=== PATIENT | female | born 2000 | race African-American/Black ===

== ENCOUNTER 2025-02-25 11:23 | Emergency (ER) | payer MEDICAID ==
[~2025-02-25] VITALS: Ht 160 cm; Wt 113.3 kg
[2025-02-25 11:26] VITALS: O2SAT 100
[2025-02-25 11:27] VITALS: BP 150/89; PULSE 71; RESP 16; TEMP 36.7; O2SAT 99
== END 2025-02-25 12:03 | disposition home or self-care (01) ==
LOC: ER 11:43
DX: M79.672 Pain in left foot (principal); M79.671 Pain in right foot
CPT/HCPCS: 99281

== ENCOUNTER 2025-04-23 22:20 | Emergency (ER) | payer MEDICAID ==
[~2025-04-23] VITALS: Ht 160 cm; Wt 114.0 kg
[2025-04-23 22:26] VITALS: O2SAT 98
[2025-04-23 23:17] LABS: BASOPHILS % 0.8 % (0.0-2.0); EOSINOPHILS % 0.5 % (0.0-5.0); HEMATOCRIT. 39.6 % (36.0-48.0); HEMOGLOBIN. 13.5 g/dL (12.0-16.0); LYMPHOCYTES % 12.7 % (20.0-50.0); MEAN CORPUSCULAR HEMOGLOBIN 30.3 pg (28.0-32.0); MEAN CORPUSCULAR HGB CONC 34.2 g/dL (31.0-37.0); MEAN CORPUSCULAR VOLUME 88.9 fL (81.0-99.0); MEAN PLATELET VOLUME 8.9 fl (7.4-10.4); MONOCYTES % 5.1 % (2.0-8.0); NEUTROPHILS % 80.9 % (40.0-76.0); PLATELET 277 x1000/uL (130-400); RED BLOOD CELL COUNT 4.45 mill/uL (4.2-5.4); RED CELL DISTRIBUTION WIDTH 14.7 % (11.6-14.6); WHITE BLOOD COUNT 18.2 x1000/uL (4.5-11.0)
[2025-04-23] MEDS: ACETAMINOPHEN 650MG/20.3ML UDC PO ONE (23:17)
[2025-04-23 23:27] LABS: CHLORIDE 101 mEq/L (98-107); POTASSIUM 3.7 mEq/L (3.5-5.1); SODIUM 136 mEq/L (136-145)
[2025-04-23 23:28] LABS: CALCIUM 9.2 mg/dL (8.7-10.4); CARBON DIOXIDE 27 mEq/L (21-32)
[2025-04-23 23:33] LABS: CREATININE 0.8 mg/dL (0.6-1.0); GLUCOSE 102 mg/dL (70-105); UREA NITROGEN BLOOD 8 mg/dL (9-23)
[2025-04-23 23:53] LABS: HCG SCREEN NEGATIVE
[2025-04-24 00:10] LABS: GLUCOSE URINE NEGATIVE (NEGATIVE); KETONES URINE NEGATIVE (NEGATIVE)
[2025-04-24] MEDS: SODIUM CHLORIDE 0.9% (SEPSIS BOLUS) IV ONE (00:56)
[2025-04-24 03:00] LABS: CLARITY URINE HAZY (CLEAR); COLOR URINE YELLOW (YELLOW); PH URINE 5.5 (4.5-8.0)
[2025-04-24 03:01] LABS: NITRITE URINE NEGATIVE (NEGATIVE); OCCULT BLOOD URINE 2+ (NEGATIVE); PROTEIN URINE NEGATIVE (NEGATIVE); UROBILINOGEN URINE 0.2 E.U./dL (0.2-1.0)
[2025-04-24 03:02] LABS: LEUKOCYTE ESTERASE URINE 2+ (NEGATIVE)
[2025-04-24 03:05] LABS: SQUAMOUS EPITHELIAL CELL URINE FEW /lpf (RARE/1+)
[2025-04-24] MEDS ORDERED: CEPH500C2 MT (03:06)
[2025-04-24 03:09] LABS: BACTERIA URINE 1+
[2025-04-24 03:10] LABS: RBC URINE 0-2 /hpf (0-2)
[2025-04-24 05:36] VITALS: BP 119/70; PULSE 80; RESP 14; TEMP 36.8; O2SAT 98
== END 2025-04-24 05:38 | disposition home or self-care (01) ==
LOC: ER 22:20
DX: J02.0 Streptococcal pharyngitis (principal); Z88.0 Allergy status to penicillin; Z79.899 Other long term (current) drug therapy
CPT/HCPCS: 80048; 81003; 84703; 87430; 83605; 85025; 87040; 87086; 36415; 99291; 96360; J7030; Z7610